=== PATIENT | female | born 1965 | race Caucasian/White ===

== ENCOUNTER 2025-09-16 21:54 | Emergency (ER) | payer OTHER ==
[~2025-09-16] VITALS: Ht 152.4 cm; Wt 65.8 kg
[2025-09-16 23:22] LABS: FLOW, VBG 0.00 L/min (0.00-30.00); FRACTIONATED INSPIRED OXYGEN-V 21.0 %; SITE, VBG VBG - N/A; VBG BASE EXCESS -1.0 mmol/L (-2.0-3.0); VBG HCO3 23.9 mmol/L (22.0-29.0); VBG MetHb 0.2 % (0.5-1.5); VBG OXYGEN SATURATION 63.3 % (60.0-85.0); VBG PCO2 40.5 mmHg (38.0-54.0); VBG PH 7.389 (7.320-7.430); VBG PO2 33.1 mmHg (23.0-48.0); VBG TOTAL HEMOGLOBIN 15.9 G/dL (12.0-16.0)
[2025-09-16 23:23] LABS: APPEARANCE,URINE CLEAR (CLEAR); BLOOD, URINE NEGATIVE Ery/uL (NEGATIVE); LEUKOCYTE ESTERASE ,URINE NEGATIVE (NEGATIVE); NITRITE, URINE NEGATIVE (NEGATIVE); UGLUCOSE 3+ mg/dL (NEGATIVE)
[2025-09-16 23:24] LABS: PLATELET COUNT (AUTO) 218 K/uL (150-450); RED BLOOD CELL COUNT(AUTO) 5.17 MIL/uL (4.0-5.2); RED CELL DISTRIBUTION WIDTH 13.2 % (11.5-15.0); WHITE BLOOD COUNT (AUTO) 9.0 K/uL (4.3-11.0)
[2025-09-16] MEDS: IV NS 0.9% 1,000 ML BAG IV ONE (23:30)
[2025-09-16 23:31] LABS: CALCIUM, SERUM 9.3 mg/dL (8.5-10.1); CREATININE 1.1 mg/dL (0.6-1.3); SODIUM SERUM 137.0 mmol/L (136-145); UREA NITROGEN, BLOOD 25.0 mg/dL (7-18)
[2025-09-16 23:34] LABS: PHOSPHORUS 4.8 mg/dL (2.5-4.9)
[2025-09-16 23:37] LABS: ASPARTATE AMINOTRANSFERASE 9.0 U/L (15-37); TOTAL PROTEIN, SERUM 7.7 g/dL (6.4-8.2)
[2025-09-16 23:43] LABS: ACETONE, SERUM NEGATIVE (NEGATIVE)
[2025-09-17 00:02] LABS: ADD URINE CULTURE NO
[2025-09-17] MEDS: IV NS 0.9% 1,000 ML IV ONE (00:07)
[2025-09-17] MEDS ORDERED: MECLIZINE HCL 25 MG TABLET ONE (01:48)
[2025-09-17] MEDS: MECLIZINE HCL 25 MG TABLET PO ONE (01:50)
[2025-09-17 01:51] VITALS: BP 140/87; TEMP 98.1; O2SAT 96
== END 2025-09-17 02:00 | disposition home or self-care (01) ==
LOC: ER 21:57
DX: E11.65 Type 2 diabetes mellitus with hyperglycemia (principal); I10 Essential (primary) hypertension
CPT/HCPCS: 99285; 96360; 71045; 96361; 93005; 82803 ×2; 85025; 80048; 82010; 80076; 83735; 84100; 81001; 36415; 84484; 82962 ×2; J7030 ×2; J8597